=== PATIENT | male | born 1945 | race Caucasian/White ===

== ENCOUNTER 2019-08-26 14:39 | Emergency (ER) | payer OTHER, BC ==
--- NOTE | 2019-08-26 14:46 | PDOC ---
History of Present Illness - General Chief Complaint: Injury Stated Complaint: LEFT FOOT BRUISE - History of Present Illness Initial Comments: The pt is a 73M w/ a history of CAD s/p stent on Plavix/ASA who presents for evaluation of left lateral foot swelling. The pt reports possibly bumping/ stepping wrong on the steps. He denies twisting his ankle, falls, or hitting his foot on anything. He states that he elevated and iced his foot prior to arrival with improvement with bruising/swelling. He denies any pain/changes in sensation. He has been able to ambulate since the time he noticed the swelling. 08/26/19 15:06 Past History - Past Medical History Allergies/Adverse Reactions: Allergies Allergy/AdvReac Type Severity Reaction Status Date / Time No Known Allergies Allergy Verified 08/26/19 14:42 Home Medications: Ambulatory Orders Amlodipine Besylate 10 mg PO DAILY 08/26/19 Ascorbic Acid [Vitamin C] 500 mg PO DAILY 08/26/19 Aspirin [ASA -] 81 mg PO DAILY 08/26/19 Atorvastatin Ca [Lipitor] 80 mg PO HS 08/26/19 Cholecalciferol (Vitamin D3) [Vitamin D3 -] 1,000 unit PO DAILY 08/26/19 Clopidogrel Bisulfate [Clopidogrel] 75 mg PO DAILY 08/26/19 Metoprolol Succinate 100 mg PO DAILY 08/26/19 HTN: Yes Hypercholesterolemia: Yes - Psycho Social/Smoking Cessation Hx Smoking History: Never smoked Have you smoked in the past 12 months: No Number of Cigarettes Smoked Daily: 0 Hx Alcohol Use: No Substance Use Type: None Review of Systems - Review of Systems Able to Perform ROS?: Yes Comments:: GENERAL/CONSTITUTIONAL: No fever or chills. No weakness HEAD, EYES, EARS, NOSE AND THROAT: No change in vision. No change in hearing. No sore throat CARDIOVASCULAR: No chest pain or shortness of breath RESPIRATORY: Denies cough, hemoptysis GASTROINTESTINAL: No nausea, vomiting, diarrhea or constipation GENITOURINARY: No dysuria, frequency, or change in urination MUSCULOSKELETAL: per HPI SKIN: No rash NEUROLOGIC: No headache, vertigo, loss of consciousness, or change in strength/ sensation ENDOCRINE: No increased thirst. No abnormal weight change HEMATOLOGIC/LYMPHATIC: +ASA/Plavix ALLERGIC/IMMUNOLOGIC: No hives or skin allergy 01/11/20 14:46 Is the patient limited Vincentian proficient: No *Physical Exam - Vital Signs 08/26/19 14:46 - Physical Exam GENERAL: Awake, alert, and oriented to person/place/time, in no acute distress HEAD: No signs of trauma, normoc ephalic, atraumatic EYES: PERRLA, EOMI, sclera anicteric, conjunctiva clear ENT: Hearing grossly normal, nares patent, oropharynx clear without exudates. Moist mucosa LUNGS: No distress, speaks in full sentences, clear to auscultation bilaterally HEART: Regular rate and rhythm, normal S1 and S2, no murmurs appreciated, peripheral pulses normal and equal bilaterally ABDOMEN: Soft, nontender, normoactive bowel sounds. No guarding, no rebound EXTREMITIES: L lateral midfoot swelling w/o underlying bony TTP or crepitus; No malleolar TTP, pt ambulating in ED, strength 5/5 BLE NEUROLOGICAL: Cranial nerves II through XII grossly intact. Normal speech, normal gait, no focal sensorimotor deficits SKIN: Warm, Dry 08/26/19 14:46 Medical Decision Making - Medical Decision Making The pt is a 73M w/ a history of CAD s/p stent on Plavix and ASA who presents for evaluation of left lateral foot swelling w/o underlying bony TTP Per [place] Ankle Rule, no indication to xray at this time Pt ambulating in ED Plan for D/C w/ PCP f/u Discharge instructions and return precautions given Patient in agreement and verbalized understanding Dispo: Home 08/26/19 15:07 Discharge - Discharge Information Problems reviewed: Yes Clinical Impression/Diagnosis: Contusion Qualifiers: Encounter type: initial encounter Contusion area: foot Laterality: left Qualified Code(s): S90.32XA - Contusion of left foot, initial encounter Condition: Stable Disposition: HOME - Admission No - Follow up/Referral Referrals: Jack Friedman MD [Staff Physician] - - Patient Discharge Instructions Patient Printed Discharge Instructions: How To Perform RICE (Rest, Ice, Compress, Elevate) Additional Instructions: You were seen in the Emergency Department for evaluation of left foot swelling. Review the handout provided at discharge. A referral was provided for an Orthopedic Surgeon if needed. Follow up with your primary care provider within the week. Return to the Emergency Department if you develop fevers, chest pain, trouble breathing, worsening symptoms, expanding hematoma/bruising, or any new/ concerning symptoms. - Post Discharge Activity Work/Back to School Note: Back to Work
--- NOTE | 2019-08-26 14:50 | PDOC ---
Attending Attestation - Resident Resident Name: LuizamarniValdemar - ED Attending Attestation I have performed the following: I have examined & evaluated the patient, The case was reviewed & discussed with the resident, I agree w/resident's findings & plan, Exceptions are as noted - HPI HPI: 08/26/19 15:38 73yo male with hx of cad on asa and plavix who may have banged his foot coming down the stairs. Pt states hematoma to L lateral aspect of foot. No pain. Doesn' t remeber falling, no alleged trauma, may have hit it slightly. No ankle pain. NO foot pain, only a hematoma to the lateral aspect of the L foot. Used ice and elevated and hematoma has become smaller and he feels better. Pt ambulating on the foot in NAD. - Physicial Exam PE: 08/26/19 15:39 Gen: aaox3, nad ext: pedal pulses intact, hematoma to L lateral aspect of the foot. no bony ttp , no 5th metatarsal ttp, ankle stable, from of the foot and ankle without pain, neg anterior drawer of the ankle, no ttp over the medial or lateral malleolus, hematoma over 4th and 5th metatarsal without ttp of the 4th and 5th metatarsal, sensation intact - Medical Decision Making 08/26/19 15:40 a/p: 73yo male with hematoma to L lateral foot -no bony ttp -suspect broken blood vessel with localized hematoma -no xray indicated -discussed risks/benefits of xray imaging and pt ok with holding off on xray given no bony ttp -discussed ice, elevated -discussed follow up -discussed risks of bleeding on asa/plavix -stable for dc to home 08/26/19 15:41
[2019-08-26 14:55] VITALS: BP 158/87; PULSE 86; TEMP 98.6; BMI 22.7
== END 2019-08-26 16:09 | disposition home or self-care (01) ==
LOC: FER 14:39
DX: S90.32XA Contusion of left foot, initial encounter (principal); X58.XXXA Exposure to other specified factors, initial encounter; Y93.89 Activity, other specified; Y92.89 Other specified places as the place of occurrence of the external cause; I10 Essential (primary) hypertension; E78.00 Pure hypercholesterolemia, unspecified; I25.10 Atherosclerotic heart disease of native coronary artery without angina pectoris
CPT/HCPCS: 99281-25